=== PATIENT | female | born 1995 | race Caucasian/White ===

== ENCOUNTER → 2023-07-22 23:00 | Outpatient (CLI) | payer BC, SELFPAY | PROVIDERS: PCP Family Medicine; Visit Provider Student in an Organized Health Care Education/Training Program | DX: J02.9 Acute pharyngitis, unspecified (principal) | CPT/HCPCS: 87070 ==

== ENCOUNTER 2023-08-13 15:11 | Emergency (ER) | payer BC, SELFPAY ==
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
[2023-08-13 16:35] VITALS: BP 116/72; PULSE 69; RESP 18; TEMP 37; O2SAT 97; BMI 25.8
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
[2023-08-13 17:03] VITALS: BP 116/72; PULSE 69; RESP 18; TEMP 37; O2SAT 97
[2023-08-13 17:18] LABS: UTC Pregnancy Test, Urine Negative (Negative)
== END 2023-08-13 17:31 | disposition home or self-care (01) ==
PROVIDERS: Emergency Provider Nurse Practitioner
DX: M54.2 Cervicalgia (principal); M54.6 Pain in thoracic spine; M25.512 Pain in left shoulder; V49.40XA Driver injured in collision with unspecified motor vehicles in traffic accident, initial encounter; Y92.410 Unspecified street and highway as the place of occurrence of the external cause
CPT/HCPCS: 72040; 72070; 73030; 81025; 99204; 99212; G0463

== ENCOUNTER 2023-09-21 21:03 | Outpatient (CLI) | payer BC, SELFPAY ==
[2023-09-21 18:17] LABS: Coronavirus 19, PCR Not Detected (NotDetected); Influenza A, PCR Not Detected (NotDetected); Influenza B, PCR Not Detected (NotDetected)
== END 2023-09-21 23:59 ==
LOC: LAB.DROPOF 21:04
PROVIDERS: PCP Nurse Practitioner Family; Visit Provider Nurse Practitioner Family
DX: J02.9 Acute pharyngitis, unspecified (principal); R53.83 Other fatigue; R05.8 Other specified cough; J32.8 Other chronic sinusitis
CPT/HCPCS: 87070; 87636